=== PATIENT | female | born 1985 | race Caucasian/White ===

== ENCOUNTER 2016-08-15 13:09 | Emergency (ER) | payer OTHER | END 2016-08-15 14:00 | disposition home or self-care (01) | LOC: ER1 13:09 | DX: S76.012A Strain of muscle, fascia and tendon of left hip, initial encounter (principal); E03.9 Hypothyroidism, unspecified; X58.XXXA Exposure to other specified factors, initial encounter; Z79.899 Other long term (current) drug therapy | CPT/HCPCS: 99283; J1100 ==

== ENCOUNTER 2016-10-04 11:28 | Emergency (ER) | payer OTHER | END 2016-10-04 14:10 | disposition home or self-care (01) | LOC: ER1 11:28 | DX: M25.551 Pain in right hip (principal); E03.9 Hypothyroidism, unspecified; Z79.899 Other long term (current) drug therapy | CPT/HCPCS: 73502; 99283 ==

== ENCOUNTER 2021-01-06 23:19 | Emergency (ER) | payer OTHER ==
[2021-01-07] MEDS ORDERED: BENADRYL25 MG PO (01:17)
[2021-01-07] MEDS ORDERED: LOTRIMIN CREAM15 GM TOP (01:17)
[2021-01-07] MEDS ORDERED: DIFLUCAN150 MG PO (01:17)
[2021-01-07] MEDS ORDERED: LODINE CAP 300300 MG PO (01:17)
== END 2021-01-07 01:30 | disposition home or self-care (01) ==
LOC: ER1 23:19
DX: S90.561A Insect bite (nonvenomous), right ankle, initial encounter (principal); B37.89 Other sites of candidiasis; Z88.0 Allergy status to penicillin; L53.9 Erythematous condition, unspecified; W57.XXXA Bitten or stung by nonvenomous insect and other nonvenomous arthropods, initial encounter
CPT/HCPCS: 99282